=== PATIENT | male | born 1955 | race Caucasian/White ===

== ENCOUNTER 2021-10-21 07:50 | Outpatient (CLI) | payer MEDICARE | END 2021-10-21 07:51 | disposition home or self-care (01) | LOC: CSHLAB 07:50 | PROVIDERS: ATTEND Internal Medicine Critical Care Medicine | DX: Z20.822 Contact with and (suspected) exposure to COVID-19 (principal) | CPT/HCPCS: 87811 ==

== ENCOUNTER 2021-10-26 15:27 | Outpatient (CLI) | payer MEDICARE | END 2021-10-26 15:28 | disposition home or self-care (01) | LOC: CSHCP 15:27 | PROVIDERS: ATTEND Internal Medicine Critical Care Medicine | DX: J44.9 Chronic obstructive pulmonary disease, unspecified (principal) | CPT/HCPCS: 94060; 94726; 94729; 94760 ==